=== PATIENT | male | born 1990 | race Caucasian/White ===

== ENCOUNTER 2016-08-13 09:54 | Outpatient (CLI) | payer OTHER | END 2016-08-13 09:55 | disposition home or self-care (01) | LOC: NAV LABSP 09:54 | PROVIDERS: ATTEND Family Medicine | DX: Z09 Encounter for follow-up examination after completed treatment for conditions other than malignant neoplasm (principal); Z87.820 Personal history of traumatic brain injury | CPT/HCPCS: 36415; 80164; 82140; 84450; 84460 ==

== ENCOUNTER 2016-08-19 07:47 | Outpatient (CLI) | payer OTHER | END 2016-08-19 07:48 | disposition home or self-care (01) | LOC: NAV LABSP 07:47 | PROVIDERS: ATTEND Family Medicine | DX: R56.9 Unspecified convulsions (principal) | CPT/HCPCS: 36415; 80164 ==

== ENCOUNTER 2016-09-23 07:17 | Outpatient (CLI) | payer OTHER ==
[2016-09-23 10:10] LABS: ALT (SGPT) 23 U/L (0-55); AST (SGOT) 23 U/L (5-34); Alkaline Phosphatase 42 U/L (40-150); Bilirubin, Direct 0.1 mg/dL (0.1-0.3); Bilirubin, Total 0.4 mg/dL (0.2-1.2); Protein, Total 6.1 g/dL (6.0-8.3)
== END 2016-09-23 07:18 | disposition home or self-care (01) ==
LOC: NAV LABSP 07:17
PROVIDERS: ATTEND Family Medicine
DX: I10 Essential (primary) hypertension (principal); Z87.820 Personal history of traumatic brain injury
CPT/HCPCS: 36415; 80061; 80076; 80164; 84443

== ENCOUNTER 2016-09-30 16:19 | Emergency (ER) | payer OTHER ==
[2016-09-30 17:30] LABS: Bilirubin Negative (Negative); Blood, Urine Negative (Negative); Glucose, Urine (Dipstick) Negative (Negative); Ketone, Urine Trace mg/dL (Negative); Nitrite Negative (Negative); Protein, Urine (Dipstick) Negative (Neg-Trace)
[2016-09-30 17:38] LABS: Methamphetamine Not Detected (NotDetected)
[2016-09-30 17:39] LABS: Acetaminophen Less than 3.0 mcg/mL (10.0-30.0); Salicylate Less than 5.0 mg/dL (15.0-30.0)
[2016-09-30 17:39] LABS: Methadone Not Detected (NotDetected)
[2016-09-30 17:41] LABS: ALT (SGPT) 40 U/L (0-55); AST (SGOT) 39 U/L (5-34); Alkaline Phosphatase 40 U/L (40-150); Anion Gap 16 mmol/L (10-20); BUN (Urea Nitrogen) 19 mg/dL (8.9-20.6); Bilirubin, Total 0.4 mg/dL (0.2-1.2); Calc. Creatinine Clearance 0 mL/min (70-130); Carbon Dioxide 22 mmol/L (22-29); Chloride 106 mmol/L (98-107); Estimated GFR-MDRD 88; Globulin 2.2 g/dL (2.4-3.5); Protein, Total 6.2 g/dL (6.0-8.3)
[2016-09-30 18:27] LABS: Hematocrit 36.6 % (42.0-52.0); Mean Platelet Volume 6.9 fL (7.4-10.4); Red Blood Cell (RBC) Count 4.07 mill/uL (4.70-6.10); White Blood Cell (WBC) Count 6.7 thou/uL (4.8-10.8)
[2016-09-30 18:28] LABS: #Basophils 0.1 thou/uL (0.0-0.2); #Eosinphils 0.1 thou/uL (0.0-0.7); #Lymphocytes 1.5 thou/uL (1.20-3.40); #Monocytes 0.5 thou/uL (0.11-0.59); #Neutrophils 4.5 thou/uL (1.40-6.50); %Basophils 1.4 % (0.0-1.0); %Eosinophils 1.2 % (0.0-10.0); %Lymphocytes 22.6 % (21.0-51.0); %Monocytes 7.2 % (0.0-10.0)
[2016-09-30 18:29] LABS: Band 2 % (5-11); Neutrophil 68 % (42-75)
== END 2016-09-30 23:01 ==
LOC: NAV ERS 16:19
DX: F32.9 Major depressive disorder, single episode, unspecified (principal); I10 Essential (primary) hypertension; E78.5 Hyperlipidemia, unspecified; G40.909 Epilepsy, unspecified, not intractable, without status epilepticus; F90.9 Attention-deficit hyperactivity disorder, unspecified type; F17.210 Nicotine dependence, cigarettes, uncomplicated; Z79.899 Other long term (current) drug therapy
CPT/HCPCS: 80053; 80306; 80307; 81003; 85025; 99284

== ENCOUNTER 2017-04-05 08:03 | Observation (INO) | payer OTHER ==
[2017-04-05] MEDS ORDERED: Ondansetron HCl/PF 4 MG/2 ML Vial ONE ×2 (08:37→08:45)
[2017-04-05 08:54] LABS: #Basophils 0.1 thou/uL (0.0-0.2); #Eosinphils 0.1 thou/uL (0.0-0.7); #Lymphocytes 1.2 thou/uL (1.20-3.40); #Monocytes 0.5 thou/uL (0.11-0.59); #Neutrophils 7.1 thou/uL (1.40-6.50); %Basophils 0.7 % (0.0-1.0); %Eosinophils 0.1 % (0.0-10.0); %Lymphocytes 13.3 % (21.0-51.0); %Neutrophils 80.8 % (42.0-75.0); Hemoglobin 16.7 g/dL (14.0-18.0); Mean Corpuscular Hemoglobin 29.4 pg (27.0-31.0); Mean Corpuscular Volume 86.6 fl (80.0-94.0); Mean Platelet Volume 7.4 fL (7.4-10.4); Platelet Count 253 thou/uL (130-400); RBC Distribution Width 11.1 % (11.5-14.5); Red Blood Cell (RBC) Count 5.69 mill/uL (4.70-6.10); White Blood Cell (WBC) Count 8.8 thou/uL (4.8-10.8)
[2017-04-05 09:02] LABS: ALT (SGPT) 23 U/L (8-55); AST (SGOT) 19 U/L (5-34); Alkaline Phosphatase 76 U/L (40-150); Anion Gap 17 mmol/L (10-20); BUN (Urea Nitrogen) 9 mg/dL (8.9-20.6); Bilirubin, Total 0.6 mg/dL (0.2-1.2); Calc. Creatinine Clearance 0 mL/min (70-130); Carbon Dioxide 24 mmol/L (22-29); Chloride 94 mmol/L (98-107); Estimated GFR-MDRD 86; Globulin 2.9 g/dL (2.4-3.5); Glucose 104 mg/dL (70-105); Lipase 19 U/L (8-78); Magnesium 2.6 mg/dL (1.6-2.6); Potassium 3.7 mmol/L (3.5-5.1); Protein, Total 7.9 g/dL (6.0-8.3); Sodium 131 mmol/L (136-145)
--- NOTE | 2017-04-05 09:12 | CT ---
CT OF THE BRAIN WITHOUT CONTRAST: Date: 04/05/17 HISTORY: Headache and vomiting. COMPARISON: 04/19/16. TECHNIQUE: Multiple contiguous axial images were obtained in a CT of the brain without contrast. FINDINGS: Encephalomalacia is seen in the right frontal and temporal lobes, as well as the left occipital lobe . Postsurgical changes are seen in the right frontal calvarium. There is no evidence of hydrocephalu s, intracranial hemorrhage, or extra-axial fluid collection. No new large confluent infarction is se en. The visualized paranasal sinuses and mastoid air cells are well aerated. IMPRESSION: No evidence of acute intracranial abnormality. POS: [facility]
[2017-04-05 09:24] LABS: Bilirubin Negative (Negative); Blood, Urine Trace (Negative); Clarity Clear (Clear); Glucose, Urine (Dipstick) Negative (Negative); Leukocyte Negative (Negative); Nitrite Negative (Negative); Protein, Urine (Dipstick) 30 mg/dL (Neg-Trace); Urobilinogen 0.2 mg/dL (0.2-1.0)
[2017-04-05 09:38] LABS: Bacteria/HPF Rare-Few HPF (None Seen); Other Microscopic Description NO; RBC/HPF 0-3 HPF (0-3); Squamous Epithelial None Seen HPF (0-3); WBC/HPF None Seen HPF (0-3)
[2017-04-05 09:39] LABS: Amphetamine Not Detected (NotDetected); Barbiturates Screen Not Detected (NotDetected); Benzodiazepine Screen Not Detected (NotDetected); Cocaine Metabolite Screen Not Detected (NotDetected); Methadone Not Detected (NotDetected); Methamphetamine Not Detected (NotDetected); Opiate Screen Not Detected (NotDetected); Oxycodone Screen Not Detected (NotDetected); Phencyclidine (PCP) Not Detected (NotDetected); THC/Cannabinoid Screen Not Detected (NotDetected); Tricyclic Screen Not Detected (NotDetected)
[2017-04-05 09:40] LABS: Medtox Control Line Valid? VALID (VALID)
[2017-04-05] MEDS ORDERED: Acetaminophen 500 MG TAB ONE ×2 (09:44→10:33)
[2017-04-05] MEDS ORDERED: Ketorolac Tromethamine 30 MG/ML VIAL ONE (11:03)
[2017-04-05] MEDS ORDERED: Ondansetron HCl/PF 4 MG/2 ML Vial IVP PRN ×2 (14:45→17:08)
[2017-04-05] MEDS ORDERED: Ondansetron ODT 4 MG TAB SL PRN (14:45)
[2017-04-05] MEDS ORDERED: Acetaminophen/Codeine 30-300mg Tablet PO PRN (15:39)
[2017-04-05] MEDS ORDERED: Acetaminophen 500 MG TAB PO PRN (16:30)
[2017-04-05] MEDS ORDERED: Ondansetron ODT 4 MG TAB PO PRN (17:08)
[2017-04-05] MEDS ORDERED: Acetaminophen 325 MG TAB PO PRN (17:08)
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
[2017-04-05] MEDS ORDERED: OXcarbazepine 600 MG TAB PO SCH (21:00)
[2017-04-05] MEDS: Famotidine 20 MG TAB PO SCH (21:19)
[2017-04-05] MEDS: Atorvastatin Calcium 10 MG TAB PO SCH (21:19)
[2017-04-05] MEDS: Lacosamide 50 mg Tablet PO SCH (21:19)
[2017-04-05] MEDS: Quetiapine Fumarate [Seroquel Xr] 300 MG PO SCH (21:20)
[2017-04-05] MEDS: Docusate 100 MG CAP PO SCH (21:20)
[2017-04-06 05:24] VITALS: BMI 19.7
[2017-04-06] MEDS: Famotidine 20 MG TAB PO SCH ×2 (08:43→21:21)
[2017-04-06] MEDS: Docusate 100 MG CAP PO SCH ×2 (08:43→21:21)
[2017-04-06] MEDS: Lacosamide 50 mg Tablet PO SCH ×2 (08:43→21:20)
[2017-04-06] MEDS: Triamterene/Hydrochlorothiazide 37.5 mg/25 mg Tablet PO SCH (08:43)
[2017-04-06] MEDS: FLUoxetine HCl 10 MG CAP PO SCH (08:43)
[2017-04-06] MEDS: OXCARBAZEPINE 300 MG PO SCH ×2 (08:46→21:21)
--- NOTE | 2017-04-06 19:44 | PRG ---
MEDICAL PROGRESS NOTE DATE OF SERVICE: 04/06/2017 SUBJECTIVE: The patient feels well with minimal headache. No shortness of breath, no seizure. Goo d appetite. No agitation. Rested well through the night. Patient is eating well with no nausea or vomiting. OBJECTIVE: VITAL SIGNS: Temperature is 97.5, pulse 87, respirations 18, O2 sats 95% and blood pressure 111/65. LUNGS: Clear. CARDIAC: Showed regular rhythm. ABDOMEN: Soft and nontender. ASSESSMENT: 1. Resolving post-seizure Lamin's paralysis and headache. 2. Stable traumatic brain injury. PLAN: Discharge home in the morning when the family able to arrive.
[2017-04-06] MEDS: Atorvastatin Calcium 10 MG TAB PO SCH (21:21)
[2017-04-06] MEDS: Quetiapine Fumarate [Seroquel Xr] 300 MG PO SCH (21:22)
[2017-04-07 04:34] VITALS: TEMP 97.2
[2017-04-07 08:02] VITALS: BP 118/63
--- NOTE | 2017-04-07 09:41 | PRG ---
DATE OF SERVICE: 04/07/2017 SUBJECTIVE: The patient is lying in bed resting. No complaints. No agitation through the night. After discussion with mother, he has had minimal headache, no nausea, vomiting, and no seizure activ ity. OBJECTIVE: VITAL SIGNS: Blood pressure 112/56, temperature 97, pulse 62, respirations 18, O2 saturation is 97% . LUNGS: Clear. CARDIAC: Shows regular rhythm. NEUROLOGIC: Shows no focal findings. ASSESSMENT AND PLAN: 1. Stable traumatic brain injury. 2. Stable seizure disorder, controlled with no recurrence. 3. Resolved recent seizure with Lamin's paralysis and headache. PLAN: Discharge home today.
[2017-04-07] MEDS: Lacosamide 50 mg Tablet PO SCH (10:00)
[2017-04-07] MEDS: OXCARBAZEPINE 300 MG PO SCH (10:00)
[2017-04-07] MEDS: Famotidine 20 MG TAB PO SCH (10:00)
[2017-04-07] MEDS: Triamterene/Hydrochlorothiazide 37.5 mg/25 mg Tablet PO SCH (10:00)
[2017-04-07] MEDS: FLUoxetine HCl 10 MG CAP PO SCH (10:00)
[2017-04-07] MEDS: Docusate 100 MG CAP PO SCH (10:00)
== END 2017-04-07 10:45 | disposition home or self-care (01) ==
LOC: NAV ERS 08:03 → NAV ACUTE 12:11
PROVIDERS: ADMIT Internal Medicine; ATTEND Internal Medicine
DX: G83.84 Todd's paralysis (postepileptic) (principal); R29.810 Facial weakness; F90.9 Attention-deficit hyperactivity disorder, unspecified type; F31.9 Bipolar disorder, unspecified; F17.200 Nicotine dependence, unspecified, uncomplicated; Z79.899 Other long term (current) drug therapy; G89.29 Other chronic pain; Z98.890 Other specified postprocedural states; Z87.820 Personal history of traumatic brain injury
CPT/HCPCS: 70450; 80053; 80306; 81003; 81015; 83690; 83735; 85025; 96374; 96375; 96376; A4216; G0378; J1885; J2405

== ENCOUNTER 2018-08-21 08:51 | Emergency (ER) | payer OTHER ==
[2018-08-21] MEDS ORDERED: Acetaminophen 500 MG TAB ONE (09:17)
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
== END 2018-08-21 11:03 ==
LOC: NAV ERS 08:51
DX: S05.11XA Contusion of eyeball and orbital tissues, right eye, initial encounter (principal); Z71.6 Tobacco abuse counseling; E78.5 Hyperlipidemia, unspecified; I10 Essential (primary) hypertension; G40.909 Epilepsy, unspecified, not intractable, without status epilepticus; F31.9 Bipolar disorder, unspecified; F90.9 Attention-deficit hyperactivity disorder, unspecified type; F17.210 Nicotine dependence, cigarettes, uncomplicated; Z79.899 Other long term (current) drug therapy; W22.8XXA Striking against or struck by other objects, initial encounter
CPT/HCPCS: 70450; 70486; 99406